=== PATIENT | female | born 1950 | race Caucasian/White ===

== ENCOUNTER → 2016-04-26 | Outpatient (CLI) | payer BC ==
--- NOTE | 2016-04-26 19:11 | MR ---
EXAMINATION TYPE: MR shoulder LT wo con DATE OF EXAM: 04/26/2016 6:47 PM COMPARISON: NONE HISTORY: Left shoulder derangement, Pain, Decreased range of motion TECHNIQUE: Multiplanar, multisequence imaging of the left shoulder is performed without contrast. FINDINGS: Rotator Cuff: There is thinning and increased signal involving the insertion of the supraspinatus ten don extending a diameter of 2.3 cm with more marked findings involving the anterior fibers compatible with partial tear. No retraction. Acromioclavicular Joint: There is narrowing and hypertrophic change of the AC joint but no mass effec t upon the rotator cuff. Glenohumeral Joint: Joint spaces maintained. Inferior glenohumeral ligament is intact. Labrum: There is abnormal signal within the superior labrum suggestive of a anterior superior and inf erior labral tear Biceps Tendon: The long head of biceps is in normal location within bicipital groove. Bone marrow signal: Cystic changes in the humeral head has a benign appearance. IMPRESSION: 1. Diffuse tendinopathy of the supraspinatus tendon distally with partial tear near the insertion but no evidence of retraction. A small partial through thickness tear involving the anterior fibers susp ected. 2. Anterior superior and inferior labral tear. 3. Arthropathy of the AC joint but no mass effect upon the rotator cuff.
== END ==
LOC: RADMRIMAIN 18:06
PROVIDERS: ATTEND Family Medicine
DX: M75.102 Unspecified rotator cuff tear or rupture of left shoulder, not specified as traumatic (principal); S43.492A Other sprain of left shoulder joint, initial encounter; M12.9 Arthropathy, unspecified

== ENCOUNTER → 2016-08-16 | Outpatient (CLI) | payer BC ==
--- NOTE | 2016-08-16 08:46 | US ---
EXAMINATION TYPE: US thyroid st tissue head/neck DATE OF EXAM: 08/16/2016 COMPARISON: US July 29, 2015 CLINICAL HISTORY: E04.2 Nontoxic multinodular goiter. follow up GLAND SIZE: Right Lobe: 5.3 x 1.3 x1.7 cm Overall Parenchyma: heterogenous Left Lobe: 5.1 x 1.3 x 1.1 cm Overall Parenchyma: heterogeneous Isthmus Thickness: 0.4 cm NODULES RIGHT: # of nodules measured on right: 2 1. 1.7 X 0.8 x 1.4 cm hypoechoic solid nodule at the upper pole with well-defined margins; . This nodule is taller than wide and shows intranodular vascularity. Prior size: 1.6 x 1.3 x 1.0 cm 2. 0.2 X 0.2 x 0.2 cm hypoechoic cystic nodule at the lower pole with well-defined margins; . This nodule is wider than tall and shows no intranodular vascularity. Prior size: 0.2 x 0.2 x 0.2 cm LEFT: # of nodules measured on left: 0 ISTHMUS: # of nodules measured in the isthmus: 0 Bilateral neck scanned, no evidence of lymphadenopathy. Thyroid gland remains normal in size and heterogeneous in appearance. Dominant oval well-circumscribe d heterogeneous slightly hypoechoic solid nodule upper pole level right thyroid that is taller greate r than wide is grossly unchanged in size and appearance. No new nodules are evident. IMPRESSION: Heterogeneous thyroid with stable dominant 1.7 cm right thyroid solid nodule. No new greater than 1 c m solid or cystic nodules are seen
== END | disposition home or self-care (01) ==
LOC: RADUSWWP 08:15
PROVIDERS: ATTEND Internal Medicine Endocrinology, Diabetes & Metabolism
DX: E04.1 Nontoxic single thyroid nodule (principal)
CPT/HCPCS: 76536

== ENCOUNTER → 2017-05-23 | Outpatient (CLI) | payer MEDICARE, BC ==
--- NOTE | 2017-05-23 10:47 | BD ---
EXAMINATION TYPE: MG DEXA axial skeleton. DATE OF EXAM: 05/23/2017 COMPARISON: DEXA bone scan June 04, 2014 CLINICAL HISTORY: post menopausal Height: 5'7 Weight: 144 FRAX RISK QUESTIONS: Alcohol (3 or more units per day): no Family History (Parent hip fracture): no Glucocorticoids (More than 3mos): no (Ex: prednisone, prednisolone, methylprednisolone, dexamethasone, and hydrocortisone). History of Fracture in Adulthood: no Secondary Osteoporosis: 1. Type 1 Diabetes: no 2. Hyperthyroidism: no 3. Menopause before 45: no 4. Malnutrition: no 5. Chronic liver disease: no Rheumatoid Arthritis: no Current Tobacco Use: yes RISK FACTORS HISTORY OF: Postmenopausal woman: y MEDICATIONS: Additional Medications: aspirin, cholesterol Additional History: tia EXAM MEASUREMENTS: Bone mineral densitometry was performed using the [employer] System. Bone mineral density as measured about the Lumbar spine is: ----- L1-L4(G/cm2): 1.011 T Score Values are as follows: ----- L2: -2.0 ----- L3: -1.4 ----- L4: -0.9 ----- L1-L4: -1.4 Bone mineral density has: Decreased -4.8% since study of: 06/04/2014 Bone mineral density about the R hip (g/cm2): 0.890 Bone mineral density about the L hip (g/cm2): 0.893 T Score values are as follows: -----R Neck: -1.1 -----L Neck: -1.0 -----R Total: -0.7 -----L Total: -0.5 Bone mineral density has: Decreased -2.9% since study of: 06/04/2014 IMPRESSION: Osteopenia (T Score between -2.5 and -1) persistent low back and is now present femoral neck level ri ght hip. There remains slightly increased risk of fracture and the patient may be considered for treatment. Re-Screen 2-5 years. NOTE: T-SCORE=SD OF THE YOUNG ADULT MEAN.
--- NOTE | 2017-05-24 14:44 | MM ---
Reason for exam: screening (asymptomatic). Last mammogram was performed 1 year and 8 months ago. History: Patient is postmenopausal. Physical Findings: A clinical breast exam by your physician is recommended on an annual basis and results should be correlated with mammographic findings. MG 3D Screening Mammo W/Cad Bilateral CC and MLO view(s) were taken. Prior study comparison: September 22, 2015, bilateral MG screening mammo w CAD. June 04, 2014, bilateral MG screening mammo w CAD. The breast tissue is heterogeneously dense. This may lower the sensitivity of mammography. There is chronic nodularity in the right breast. No significant changes when compared with prior studies. ASSESSMENT: Negative, BI-RAD 1 RECOMMENDATION: Routine screening mammogram of both breasts in 1 year.
== END | disposition home or self-care (01) ==
LOC: RADMAMWWP 08:04
PROVIDERS: ATTEND Family Medicine
DX: Z12.31 Encounter for screening mammogram for malignant neoplasm of breast (principal); M85.851 Other specified disorders of bone density and structure, right thigh; M85.88 Other specified disorders of bone density and structure, other site; Z78.0 Asymptomatic menopausal state
CPT/HCPCS: 77063; 77067; 77080

== ENCOUNTER → 2017-07-17 | Outpatient (CLI) | payer MEDICARE, BC ==
[2017-07-17 10:31] LABS: T4, Free (Free Thyroxine) 1.18 ng/dL (0.78-2.19)
== END | disposition home or self-care (01) ==
LOC: LABWHC1 08:55
PROVIDERS: ATTEND Internal Medicine Endocrinology, Diabetes & Metabolism
DX: E04.2 Nontoxic multinodular goiter (principal)
CPT/HCPCS: 36415; 84439; 84443

== ENCOUNTER → 2017-08-04 | Outpatient (CLI) | payer MEDICARE, BC ==
--- NOTE | 2017-08-04 13:01 | US ---
EXAMINATION TYPE: US thyroid st tissue head/neck DATE OF EXAM: 08/04/2017 COMPARISON: 08/16/2016 CLINICAL HISTORY: 67-year-old female E04.2 MULTINODULAR GOITER. Follow up nodules. Hx of biopsy- nor mal. GLAND SIZE: Right Lobe: 4.8 x 1.3 x 2.2 cm Overall Parenchyma: heterogenous Left Lobe: 5.0 x 1.3 x 1.6 cm Overall Parenchyma: heterogeneous Isthmus Thickness: 0.3 cm NODULES RIGHT: # of nodules measured on right: 2 1. 1.5 X 1.0 x 1.4 cm hypoechoic solid nodule at the upper pole with well-defined margins. This nod ule is wider than tall and shows peripheral vascularity. Prior size: 1.7 x 0.8 x 1.4 cm 2. 0.2 X 0.2 x 0.3 cm hypoechoic nodule, likely tiny colloid cyst at the midpole. Prior size: 0. 2 x 0.2 x 0.2 cm LEFT: # of nodules measured on left: 0 ISTHMUS: # of nodules measured in the isthmus: 0 Bilateral neck scanned, no evidence of lymphadenopathy. IMPRESSION: Dominant solid 1.5 cm right upper pole thyroid nodule is stable to slightly smaller (previously 1.7 c m). The other nodule on the right is tiny at 3 mm and probably represents a colloid cyst.
== END | disposition home or self-care (01) ==
LOC: RADUSWWP 09:37
PROVIDERS: ATTEND Internal Medicine Endocrinology, Diabetes & Metabolism
DX: E04.2 Nontoxic multinodular goiter (principal)
CPT/HCPCS: 76536

== ENCOUNTER → 2021-03-26 | Outpatient (CLI) | payer MEDICARE ==
--- NOTE | 2021-03-29 15:43 | BD ---
EXAMINATION TYPE: Axial Bone Density DATE OF EXAM: 03/26/2021 COMPARISON: 05/23/2017 CLINICAL HISTORY: Height: 66.5 IN Weight: 143 LBS FRAX RISK QUESTIONS: Current Tobacco Use: YES RISK FACTORS HISTORY OF: Active: YES Diet low in dairy products/other sources of calcium: YES Postmenopausal woman: AGE 53 Take estrogen and/or progesterone medications: NOT NOW How long: TOOK CONTROL FOR 4 YEARS MEDICATIONS: Additional Medications: CALCIUM, VIT D,MULTI VIT, GLUCOSAMINE CHONDROITIN, CHOLESTEROL MEDS, BIOTIN, KRILL OIL, GINKO BYLOBA EXAM MEASUREMENTS: Bone mineral densitometry was performed using the [employer] System. Bone mineral density as measured about the Lumbar spine is: ----- L1-L4(G/cm2): 0.972 T Score Values are as follows: ----- L2: -2.1 ----- L3: -1.5 ----- L4: -1.4 ----- L1-L4: -1.7 Bone mineral density has: Decreased -3.2% since study of: 05/23/2017 Bone mineral density about the R hip (g/cm2): 0.835 Bone mineral density about the L hip (g/cm2): 0.861 T Score values are as follows: -----R Neck: -1.5 -----L Neck: -1.3 -----R Total: -1.2 -----L Total: -0.7 Bone mineral density has: Decreased -4.9% since study of: 05/23/2017 IMPRESSION: Osteopenia (T Score between -2.5 and -1). There is slightly increased risk of fracture and the patient may be considered for treatment. Re-Screen 2-5 years. NOTE: T-SCORE=SD OF THE YOUNG ADULT MEAN.
--- NOTE | 2021-03-30 08:59 | MM ---
Reason for exam: screening (asymptomatic). Last mammogram was performed 3 years and 10 months ago. History: Patient is postmenopausal. Physical Findings: A clinical breast exam by your physician is recommended on an annual basis and results should be correlated with mammographic findings. MG 3D Screening Mammo W/Cad Bilateral CC and MLO view(s) were taken. Prior study comparison: May 23, 2017, bilateral MG 3d screening mammo w/cad. September 22, 2015, bilateral MG screening mammo w CAD. The breast tissue is heterogeneously dense. This may lower the sensitivity of mammography. No significant changes when compared with prior studies. ASSESSMENT: Benign, BI-RAD 2 RECOMMENDATION: Routine screening mammogram of both breasts in 1 year.
== END | disposition home or self-care (01) ==
LOC: RADBDWWP 12:20
PROVIDERS: ATTEND Family Medicine
DX: Z12.31 Encounter for screening mammogram for malignant neoplasm of breast (principal); M85.89 Other specified disorders of bone density and structure, multiple sites; Z78.0 Asymptomatic menopausal state
CPT/HCPCS: 77063; 77067; 77080

== ENCOUNTER 2021-06-18 07:40 | Day surgery (SDC) | payer MEDICARE ==
[2021-06-16 15:56] VITALS: BMI 21.9
[~2021-06-18 07:40] MED LIST: LACTATED RINGERS 1,000 ML IV SCH; LIDOCAINE 1% (10MG/ML) FOR IV START INTRADERMA PRN; ONDANSETRON 4 MG/2 ML VIAL IVP PRN
[2021-06-18 08:05] VITALS: TEMP 98
[2021-06-18] MEDS ORDERED: PROPOFOL 10 MG/ML 20 ML VIAL IV ONE (08:40)
[2021-06-18] MEDS ORDERED: fentaNYL (PF) 50 MCG/ML 2 ML AMP ONE (08:40)
[2021-06-18] MEDS ORDERED: MIDAZOLAM 2 MG/2 ML VIAL ONE (08:40)
--- NOTE | 2021-06-18 09:02 | P.HPIHPCON ---
History of Present Illness H&P Date: 06/18/21 71-year-old female presents today for colonoscopy. She has had a recent positive finding on cologuard test. She denies any blood in her stool. Consent for Procedure: I have explained the operation/procedure to the patient, including the risks, benefits, side effects, alternative therapies (including not receiving the proposed treatment or service), the likelihood of the patient achieving his/her goals, and potential recuperation problems for the procedure/sedation/analgesia, as well as any blood products, if indicated. I also explained to the patient the risks, benefits and side effects of the alternatives, as well as the risks related to not receiving the proposed procedure, care, treatment, or services. - Review of Systems All systems: negative Past Medical History Past Medical History: Hyperlipidemia Additional Past Medical History / Comment(s): TIA about 6 years. History of Any Multi-Drug Resistant Organisms: None Reported Past Surgical History: Appendectomy, Prostate Surgery Additional Past Surgical History / Comment(s): foot surgery, colonoscopy. R knee surgery. Past Anesthesia/Blood Transfusion Reactions: No Reported Reaction Smoking Status: Former smoker - Past Family History Father Family Medical History: Cancer Additional Family Medical History / Comment(s): Prostate Medications and Allergies Home Medications Medication Instructions Recorded Confirmed Type Cholecalciferol [Vitamin D3 (25 1,000 unit PO DAILY 05/09/15 06/16/21 History Mcg = 1000 Iu)] Glucosamine/Chondr Malloy A Sod [Osteo 1 tab PO DAILY 05/09/15 06/16/21 History Bi-Flex Caplet] Krill Oil 500 cap PO DAILY 05/09/15 06/16/21 History Multivitamins, Thera [Multivitamin 1 tab PO DAILY 05/09/15 06/16/21 History (formulary)] Aspirin EC [Ecotrin] 325 mg PO DAILY tablet. 05/10/15 06/16/21 Rx Atorvastatin Calcium [Lipitor] 10 mg PO DAILY #30 tab 05/10/15 06/16/21 Rx Allergies Allergy/AdvReac Type Severity Reaction Status Date / Time No Known Allergies Allergy Verified 06/16/21 15:35 Surgical - Exam Osteopathic Statement: *. No significant issues noted on an osteopathic structural exam other than those noted in the History and Physical/Consult. Vital Signs Temp 98 F 05/13/22 08:04 - General no distress - Eyes normal ocular movement - Neck trachea midline - Respiratory normal respiratory effort - Abdomen Abdomen: soft, non tender Assessment and Plan Plan: Plan is for colonoscopy. Risks, benefits and alternatives were provided to the patient. Further recommendations after procedure.
--- NOTE | 2021-06-18 09:03 | P.PCN ---
Date of Procedure: 06/18/21 Preoperative Diagnosis: Positive Cologuard Postoperative Diagnosis: Internal hemorrhoids Procedure(s) Performed: Colonoscopy Anesthesia: MAC Surgeon: Krystal Yanes Pathology: none sent Condition: stable Disposition: same day Indications for Procedure: 71-year-old female presents today for colonoscopy secondary to positive finding on cologuard test. Risks, benefits and alternatives were provided. Operative Findings: Overall, normal-appearing colon Internal hemorrhoids Description of Procedure: The patient was brought into the endoscopy suite and placed in left lateral decubitus position. Adequate sedation was achieved using conscious sedation. A digital rectal exam was performed and internal hemorrhoids were palpated. An endoscope was then placed in the rectum and advanced to the cecum as identified by landmarks including the appendiceal orifice and the ileocecal valve. The prep was good. The colonoscope was then slowly withdrawn, examining for any mucosal abnormalities. The cecum, ascending, transverse, descending and sigmoid colon were visualized adequately. There were no large neoplastic lesions noted throughout the colon. There were no obvious polyps noted throughout the colon. There was no evidence of diverticulosis. Retroflexion was performed in the rectum and internal hemorrhoids were visible. Excess air was removed, the colonoscope withdrawn and the procedure terminated. The patient was then transferred to the recovery unit in stable condition. Repeat colonoscopy should be performed in 5 years.
[2021-06-18 09:08] VITALS: RESP 16
[2021-06-18 09:18] VITALS: BP 110/71; PULSE 71
== END 2021-06-18 09:34 | disposition home or self-care (01) ==
LOC: ORWHC2ENDO 07:40
PROVIDERS: ATTEND Surgery
DX: K64.8 Other hemorrhoids (principal); R19.5 Other fecal abnormalities; E78.5 Hyperlipidemia, unspecified; Z87.891 Personal history of nicotine dependence; Z86.73 Personal history of transient ischemic attack (TIA), and cerebral infarction without residual deficits
CPT/HCPCS: 45378; J2250; J3010; J2704

== ENCOUNTER 2021-10-02 18:52 | Emergency (ER) | payer MEDICARE ==
[2021-10-02] MEDS ORDERED: MORPHINE SULFATE 2 MG/ML SYRINGE IVP STA (19:20)
[2021-10-02] MEDS ORDERED: ONDANSETRON 4 MG/2 ML VIAL IVP STA (19:20)
[2021-10-02] MEDS ORDERED: SODIUM CHLORIDE 0.9% 500 ML 500 ML IV STA (19:20)
--- NOTE | 2021-10-02 19:23 | ED ---
General Adult HPI - General Chief complaint: Back Pain/Injury Stated complaint: Possible Kidney Stone Time Seen by Provider: 10/02/21 19:03 Source: patient, RN notes reviewed Mode of arrival: ambulatory Limitations: no limitations - History of Present Illness Initial comments: 71-year-old female presents to the emergency department for evaluation of low back pain that radiates to bilateral groin and pelvic region, sudden onset this afternoon. States pain was accompanied by 2 episodes of vomiting and mild persistent nausea. States she has some urinary discomfort as well. Expresses concern for kidney stone or urinary tract infection. Is able to move freely at this time. Denies injury, trauma, fall, fever, chills, chest pain, cough, shortness of breath, diarrhea, constipation, or hematuria. No loss of bowel or bladder control, foot drop, or saddle anesthesia. - Related Data Home Medications Medication Instructions Recorded Confirmed Cholecalciferol [Vitamin D3 (25 1,000 unit PO DAILY 05/09/15 06/16/21 Mcg = 1000 Iu)] Glucosamine/Chondr Malloy A Sod [Osteo 1 tab PO DAILY 05/09/15 06/16/21 Bi-Flex Caplet] Krill Oil 500 cap PO DAILY 05/09/15 06/16/21 Multivitamins, Thera [Multivitamin 1 tab PO DAILY 05/09/15 06/16/21 (formulary)] Previous Rx's Medication Instructions Recorded Aspirin EC [Ecotrin] 325 mg PO DAILY tablet. 05/10/15 Atorvastatin Calcium [Lipitor] 10 mg PO DAILY #30 tab 05/10/15 HYDROcodone/APAP 5-325MG [Belt 5] 1 each PO Q6HR PRN #12 tab 10/02/21 Ondansetron Odt [Zofran Odt] 4 mg PO Q8HR PRN #10 tab 10/02/21 Tamsulosin [Flomax] 0.4 mg PO DAILY 7 Days #7 cap 10/02/21 Allergies Allergy/AdvReac Type Severity Reaction Status Date / Time No Known Allergies Allergy Verified 10/02/21 19:01 Review of Systems ROS Statement: Those systems with pertinent positive or pertinent negative responses have been documented in the HPI. ROS Other: All systems not noted in ROS Statement are negative. Past Medical History Past Medical History: Hyperlipidemia Additional Past Medical History / Comment(s): TIA about 6 years. History of Any Multi-Drug Resistant Organisms: None Reported Past Surgical History: Appendectomy, Prostate Surgery Additional Past Surgical History / Comment(s): foot surgery, colonoscopy. R knee surgery. Past Anesthesia/Blood Transfusion Reactions: No Reported Reaction Past Psychological History: Depression Smoking Status: Former smoker Past Alcohol Use History: None Reported Past Drug Use History: None Reported - Past Family History Father Family Medical History: Cancer Additional Family Medical History / Comment(s): Prostate General Exam Limitations: no limitations (Well-developed, well-nourished female in no acute distress. Initial temperature 98.2, pulse 80, respirations 20, blood pressure 126 were 56, pulse ox 97% on room air.) General appearance: alert, in no apparent distress ENT exam: Present: normal exam, normal oropharynx Respiratory exam: Present: normal lung sounds bilaterally. Absent: respiratory distress, wheezes, rales, rhonchi, stridor Cardiovascular Exam: Present: regular rate, normal rhythm, normal heart sounds. Absent: systolic murmur, diastolic murmur, rubs, gallop, clicks GI/Abdominal exam: Present: soft, normal bowel sounds. Absent: distended, ten derness, guarding, rebound, rigid Back exam: Present: normal inspection, full ROM. Absent: tenderness, CVA tenderness (R), CVA tenderness (L) Expanded Back exam: Negative Straight Leg Raising: Left, Right Neurological exam: Present: alert, oriented X3, CN II-XII intact, normal gait Psychiatric exam: Present: normal affect, normal mood Skin exam: Present: warm, dry, intact, normal color. Absent: rash Course Vital Signs 10/02/21 10/02/21 18:57 23:10 Temperature 98.2 F 97.8 F Pulse Rate 80 78 Respiratory 20 18 Rate Blood Pressure 126/56 112/67 O2 Sat by Pulse 97 98 Oximetry - Reevaluation(s) Reevaluation #1: 10/02/21 21:27 Upon reassessment, patient is resting comfortably and is pain free. No nausea at this time. She is updated on results from laboratory studies including my suspicion that she does have a kidney stone. She is agreeable to CT for c onfirmation. Medical Decision Making - Medical Decision Making This is a 71-year-old female who presents to the emergency Department with complaints of low back pain and is accompanied by nausea and vomiting. Upon exam, patient appears uncomfortable though nontoxic. Vital signs are stable. Laboratory studies were reviewed showing slightly elevated BUN, mild leukocytosis felt to be reactive, and urinalysis showing 62 urine RBCs per HPF and [address] shows obstructing calculus with left sided hydronephrosis and hydroureter. Patient is given Flomax along with pain and nausea medications. She is feeling much improved therefore will be discharged home to follow up with her PCP for a recheck this week. Strict return p arameters were discussed in detail. Patient verbalizes understanding and agrees with this plan. Attending:Antonio - Lab Data Result diagrams: 10/02/21 19:43 10/02/21 19:43 Lab Results 10/02/21 10/02/21 10/02/21 Range/Units 19:43 19:43 19:43 WBC 11.5 H (3.8-10.6) k/uL RBC 4.54 (3.80-5.40) m/uL Hgb 14.3 (11.4-16.0) gm/dL Hct 43.2 (34.0-46.0) % MCV 95.2 (80.0-100.0) fL MCH 31.6 (25.0-35.0) pg MCHC 33.1 (31.0-37.0) g/dL RDW 12.2 (11.5-15.5) % Plt Count 238 (150-450) k/uL MPV 8.1 Neutrophils % 75 % Lymphocytes % 16 % Monocytes % 4 % Eosinophils % 2 % Basophils % 2 % Neutrophils # 8.7 H (1.3-7.7) k/uL Lymphocytes # 1.9 (1.0-4.8) k/uL Monocytes # 0.4 (0-1.0) k/uL Eosinophils # 0.2 (0-0.7) k/uL Basophils # 0.3 H (0-0.2) k/uL Sodium 139 (137-145) mmol/L Potassium 4.3 (3.5-5.1) mmol/L Chloride 102 (98-107) mmol/L Carbon Dioxide 25 (22-30) mmol/L Anion Gap 12 mmol/L BUN 24 H (7-17) mg/dL Creatinine 0.86 (0.52-1.04) mg/dL Est GFR (CKD-EPI)AfAm 80 (>60 ml/min/1.73 sqM) Est GFR (CKD-EPI)NonAf 70 (>60 ml/min/1.73 sqM) Glucose 118 H (74-99) mg/dL Calcium 9.8 (8.4-10.2) mg/dL Total Bilirubin 0.3 (0.2-1.3) mg/dL AST 30 (14-36) U/L ALT 18 (4-34) U/L Alkaline Phosphatase 117 (38-126) U/L Total Protein 7.3 (6.3-8.2) g/dL Albumin 4.6 (3.5-5.0) g/dL Urine Color Yellow Urine Appearance Cloudy H (Clear) Urine pH 6.5 (5.0-8.0) Ur Specific [place] 1.024 (1.001-1.035) Urine Protein Trace H (Negative) Urine Glucose (UA) Negative (Negative) Urine Ketones 1+ H (Negative) Urine Blood Moderate H (Negative) Urine Nitrite Negative (Negative) Urine Bilirubin Negative (Negative) Urine Urobilinogen <2.0 (<2.0) mg/dL Ur Leukocyte Esterase Trace H (Negative) Urine RBC 62 H (0-5) /hpf Urine WBC 11 H (0-5) /hpf Calcium Oxalate Crystal Many H (None) /hpf Urine Bacteria Few H (None) /hpf Urine Mucus Rare H (None) /hpf - Radiology Data Radiology results: report reviewed, image reviewed CT of the abdomen and pelvis without contrast was obtained. Report was reviewed in its entirety. Impression per Dr. Davison's obstructing calculus at the left ureterovesical junction with left sided hydronephrosis and hydroureter. No other calculus seen. Disposition Clinical Impression: Kidney stone on left side Disposition: HOME SELF-CARE Condition: Stable Instructions (If sedation given, give patient instructions): Kidney Stones (ED) Additional Instructions: Take Flomax at night. Belt is for more severe pain. Zofran is for nausea. Call your PCP to schedule a follow-up appointment to be seen this week. Return to the emergency department with any new, worsening, or concerning symptoms. Prescriptions: Tamsulosin [Flomax] 0.4 mg PO DAILY 7 Days #7 cap HYDROcodone/APAP 5-325MG [Belt 5] 1 each PO Q6HR PRN #12 tab PRN Reason: Pain Ondansetron Odt [Zofran Odt] 4 mg PO Q8HR PRN #10 tab PRN Reason: Nausea Is patient prescribed a controlled substance at d/c from ED?: Yes When asked, does pt state using other controlled substances?: No If prescribed controlled substance>3 days was MAPS reviewed?: Prescribed <3 Days If opioid is for acute pain is fill amount 7 days or less?: Yes If Rx opioid, was Start Talking consent form obtained?: Yes Referrals: Baljinder Durham DO [Primary Care Provider] - 1-2 days Time of Disposition: 22:56
[2021-10-02 20:09] LABS: Basophils # (A) 0.3 k/uL (0-0.2); Basophils % (A) 2 %; Eosinophils # (A) 0.2 k/uL (0-0.7); Eosinophils % (A) 2 %; HCT 43.2 % (34.0-46.0); HGB 14.3 gm/dL (11.4-16.0); Lymphocytes # (A) 1.9 k/uL (1.0-4.8); Lymphocytes % (A) 16 %; MCH 31.6 pg (25.0-35.0); MCHC 33.1 g/dL (31.0-37.0); MCV 95.2 fL (80.0-100.0); Mean Platelet Volume 8.1; Monocytes # (A) 0.4 k/uL (0-1.0); Monocytes % (A) 4 %; Neutrophils # (A) 8.7 k/uL (1.3-7.7); Neutrophils % (A) 75 %; Platelet Count 238 k/uL (150-450); RBC 4.54 m/uL (3.80-5.40); RDW 12.2 % (11.5-15.5); WBC 11.5 k/uL (3.8-10.6)
[2021-10-02 20:25] LABS: Albumin 4.6 g/dL (3.5-5.0); Calcium 9.8 mg/dL (8.4-10.2); Potassium 4.3 mmol/L (3.5-5.1); Total Bilirubin 0.3 mg/dL (0.2-1.3); Total Protein 7.3 g/dL (6.3-8.2)
[2021-10-02 21:01] LABS: Appearance,Urine Cloudy (Clear); Bacteria,Urine Few /hpf; Bilirubin,Urine Negative (Negative); Blood,Urine Moderate (Negative); Calcium Oxalate Crystals,Urine Many /hpf; Color,Urine Yellow; Glucose,Urine (UA) Negative (Negative); Ketones,Urine 1+ (Negative); Leukocyte Esterase,Urine Trace (Negative); Mucus,Urine Rare /hpf; Nitrite,Urine Negative (Negative); PH, Urine 6.5 (5.0-8.0); Protein,Urine Trace (Negative); RBC,Urine 62 /hpf (0-5); Specific Gravity,Urine 1.024 (1.001-1.035); Urobilinogen,Urine <2.0 mg/dL (<2.0); WBC,Urine 11 /hpf (0-5)
--- NOTE | 2021-10-02 22:18 | CT ---
EXAMINATION TYPE: CT abdomen pelvis wo con DATE OF EXAM: 10/02/2021 COMPARISON: None HISTORY: flank pain, suspect kidney stone CT DLP: 430.3 mGycm Automated exposure control for dose reduction was used. Images obtained from the diaphragm to the floor the pelvis with no contrast. There is some minimal atelectasis at the lung bases. No pleural effusion. Heart size is normal. No pe ricardial effusion. Liver and spleen are intact. The stomach is intact. The bile ducts are not dilate d. No evidence of pancreatic mass. Gallbladder appears normal. There is no adrenal mass. Kidneys have normal size. There is left-sided hydronephrosis and hydrourete r. There is 4 mm obstructing calculus at the left ureterovesical junction. Bladder distends smoothly. No inguinal hernia. No free fluid in the pelvis. There is no pelvic mass. No mesenteric edema. No ascites or free air. No sign of a bowel obstruction. Appendix not clearly seen. No sign of thickened appendix. The lumbar vertebrae are normal alignment. No compression fracture. Disc spaces are normal. The bony pelvis is intact. The hip joints are intact. IMPRESSION: Obstructing calculus at the left ureterovesical junction with left-sided hydronephrosis and hydrouret er. No other calculus seen.
[2021-10-02] MEDS ORDERED: ACET/COD 300 MG/30 MG STARTER PACK 6 TAB BTL PO STA (22:51)
[2021-10-02] MEDS ORDERED: ONDANSETRON 4 MG ODT STARTER PACK 2 TAB BTL PO STA (22:51)
[2021-10-02 23:11] VITALS: BP 112/67; PULSE 78; RESP 18; TEMP 97.8
== END 2021-10-02 23:11 | disposition home or self-care (01) ==
LOC: EC 18:52
DX: N13.2 Hydronephrosis with renal and ureteral calculous obstruction (principal); Z87.891 Personal history of nicotine dependence
CPT/HCPCS: 36415; 80053; 85025; 81001; 87086; 74176; 99284; 96374; 96375; 96361; J2405; J2270; S0119

== ENCOUNTER → 2021-11-10 | Outpatient (CLI) | payer MEDICARE ==
--- NOTE | 2021-11-10 11:14 | XR ---
EXAMINATION TYPE: XR abdomen 1V DATE OF EXAM: 11/10/2021 COMPARISON: CT scan 10/02/2021 HISTORY: Pain TECHNIQUE: One view abdominal series FINDINGS: The osseous structures are intact. The bowel gas pattern is nonspecific. Lung bases are clear. There are 2 small calcifications in left hemipelvis measuring diameter of approximately 3 mm. IMPRESSION: 1. Suspect a 3 mm diameter distal left ureteral calculi..
== END | disposition home or self-care (01) ==
LOC: RADXRMAIN 10:50
PROVIDERS: ATTEND Family Medicine
DX: N20.1 Calculus of ureter (principal)
CPT/HCPCS: 74018

== ENCOUNTER → 2022-02-14 | Outpatient (CLI) | payer MEDICARE ==
--- NOTE | 2022-02-14 13:24 | XR ---
EXAMINATION TYPE: XR abdomen 2V DATE OF EXAM: 02/14/2022 COMPARISON: 11/10/2021 HISTORY: Pain TECHNIQUE: One view abdominal series FINDINGS: The osseous structures are intact. The bowel gas pattern is nonspecific. Mild blunting of the left c ostophrenic angle. Mild hypertrophic change of the spine. No suspicious calcifications overlying the renal outlines or within the pelvis. Tiny calcifications along the right hemipelvis stable from prior exam and suggestive of vascular phleboliths. Calcifications involving the left hemipelvis again noted and could represent a 3 mm distal left urete ral calculus. IMPRESSION: 1. Stable appearing 3 mm calcification near the left UVJ correlate clinically for ureteral stone.
--- NOTE | 2022-02-14 13:25 | XR ---
EXAMINATION TYPE: XR chest 2V DATE OF EXAM: 02/14/2022 COMPARISON: 05/09/2015 TECHNIQUE: PA and lateral views submitted. HISTORY: Annual physical FINDINGS: The lungs are clear and there is no pneumothorax, pleural effusion, or focal pneumonia. Heart size normal and no overt failure. Osseous structures demonstrate hypertrophic and degenerative changes of the spine. Hyperexpansion suggests COPD. Mild atherosclerotic change aorta. Subtle scoliosis of the s pine with hypertrophic spurring and mild degenerative disc disease. IMPRESSION: 1. No acute process. Correlate for mild COPD.
== END | disposition home or self-care (01) ==
LOC: RADXRMAIN 13:00
PROVIDERS: ATTEND Family Medicine
DX: N20.2 Calculus of kidney with calculus of ureter (principal); J44.9 Chronic obstructive pulmonary disease, unspecified; R55 Syncope and collapse; Z87.891 Personal history of nicotine dependence
CPT/HCPCS: 71046; 74019